=== PATIENT | female | born 1995 | race Two or more races ===

== ENCOUNTER 2025-04-13 11:21 | Emergency (ER) | payer BC, SELFPAY ==
[2025-04-13 11:32] VITALS: BP 159/95; PULSE 77; RESP 18; TEMP 37.1; O2SAT 96; BMI 37.2
--- NOTE | 2025-04-13 11:40 | XR_ITS ---
Examination: CT abdomen and pelvis without contrast. Coronal 3-D reconstructions. Sagittal 2-D reconstructions. Date and time of exam:April 13, 2025 1330 hours INDICATIONS: Onset left-sided flank pain and nausea beginning today CTDI: vol (mGy): 14.3 DLP: (mGycm): 896 Technique: Axial images of the abdomen have been obtained, 3 mm slice thickness Intravenous contrast material has not been administered. Low dose protocols were performed. One or more of the following dose reduction techniques were used; automated exposure control, adjustment of the mA and/or KV according to patient size, use of iterative reconstruction technique. Findings: Diffuse fatty infiltration throughout the liver no focal liver lesions No gallstones Spleen not enlarged No pancreatic mass No renal or ureteral calculi, no hydronephrosis Aorta normal size Normal appendix No bowel obstruction Anteverted uterus No adnexal mass No bladder mass or bladder calculi The osseous structures are intact IMPRESSION: No renal or ureteral calculi, no hydronephrosis No bladder mass or bladder calculi Normal appendix
[2025-04-13 12:18] LABS: Collection Type, Urine Clean Catch
[2025-04-13 12:28] LABS: Basophils # (Auto) 0.1 Thou/mm3 (0.0-0.2); Basophils % (Auto) 1 % (0-2.5); Eosinophils # (Auto) 0.1 Thou/mm3 (0.0-0.5); Eosinophils % (Auto) 0 % (0-10); Hematocrit 47.9 % (36.0-46.0); Hemoglobin 16.8 g/dL (12.0-16.0); Immature Granulocytes % (Auto) 0 % (0-0); Immature Granulocytes Auto 0.05 Thou/mm3 (0.00-0.00); Lymphocytes # (Auto) 2.2 Thou/mm3 (1.0-4.8); Lymphocytes % (Auto) 19 % (10-50); Mean Corpuscular HGB Conc 35.1 g/dl (31.0-37.0); Mean Corpuscular Hemoglobin 31.2 pg (25.0-35.0); Mean Corpuscular Volume 89 fL (80-100); Monocytes # (Auto) 0.6 Thou/mm3 (0.0-0.8); Monocytes % (Auto) 5 % (0-12); Neutrophils # (Auto) 8.8 Thou/mm3 (1.8-7.7); Neutrophils % (Auto) 75 % (37-80); Nucleated Red Blood Cell % 0 /100 WBC (0); Platelet Count 518 Thou/mm3 (140-440); RDW Standard Deviation 40.6 fL (36.4-46.3); Red Blood Count 5.38 Miln/mm3 (4.00-5.20); White Blood Count 11.7 Thou/mm3 (3.6-11.0)
[2025-04-13 12:37] LABS: Alanine Aminotransferase 63 U/L (10-49); Albumin, Serum 5.1 gm/dL (3.5-5.0); Albumin/Globulin Ratio 1.8 (1.2-2.2); Alkaline Phosphatase 86 U/L (46-116); Anion Gap 11 (7-16); Aspartate Amino Transferase 91 U/L (0-34); BUN/Creatinine Ratio 10 Ratio (12-20); Bilirubin,Total 0.8 mg/dL (0.3-1.2); Blood Urea Nitrogen 9 mg/dL (9-23); Calcium 9.5 mg/dL (8.3-10.6); Calcium (Corrected) 9.5 mg/dL (8.5-10.1); Carbon Dioxide 28.4 mMol/L (20.0-31.0); Chloride 102 mMol/L (98-107); Creatinine (Component) 0.9 mg/dL (0.6-1.3); Estimated Creatinine Clearance 107.9 mL/min (>60); Globulin 2.8 gm/dL (2.3-3.5); Glucose 122 mg/dL (74-106); Lipase 31 U/L (12-53); Osmolality,Calculated 280 (275-295); Potassium 3.9 mMol/L (3.4-5.1); Sodium 141 mMol/L (136-145); Total Protein 7.9 gm/dL (5.7-8.2); eGFR > 60 See Note
[2025-04-13 12:50] LABS: Bacteria,Urine Rare; Bilirubin,Urine Negative (Negative); Blood,Urine 1+ (Negative); Clarity,Urine Turbid (Clear/Hazy); Color,Urine Lt-Yellow (Lt Yel-Yel); Glucose, Urine Negative (Negative); Ketones,Urine 2+ (Negative); Leukocyte Esterase,Urine Positive (Negative); Nitrite,Urine Negative (Negative); Protein,Urine Negative (Neg - Trace); RBC,Urine 6 /hpf (0-3); Specific Gravity,Urine 1.018 (1.001-1.035); Squamous Epithelial Cell,Urine 7 /hpf (0-5); Urobilinogen,Urine Negative mg/dL (0.0-1.0); WBC,Urine 7 /hpf (0-5)
[2025-04-13 12:53] LABS: HCG Qualitative,Urine Negative
--- NOTE | 2025-04-13 14:36 | EDNOTE_ITS ---
ED Abdominal Pain RME/HPI General Chief Complaint: Abdominal Pain Stated complaint: Abdominal pain since yesterday Time seen by provider: 04/13/25 11:25 Arrival date/time: 04/13/25 11:21 This is a case of 29-year-old female who came in in the emergency room due to left-sided abdominal pain for 2 days initiated with nausea vomiting denies any constipation diarrhea persistence of the symptoms this patient decided to start consult here in the emergency room Mode of arrival: ambulatory Limitations: no limitations Related Data Previous Rx's ?Medication ?Instructions ?Recorded Promethazine Hcl/Dextromethorphan 1 tsp PO Q4-6HRPRN P RN cough #120 10/27/17 SYRUP * (PHENERGAN DM SYRUP *) mL acetaminophen 500 mg tablet 1,000 mg (2 x 500 mg) PO Q 6HR PRN 10/27/17 (Tylenol Extra Strength) PAIN #30 tabs ibuprofen 600 mg tablet 600 mg PO Q6HR PRN PAIN #30 tabs 10/27/17 ondansetron 4 mg disintegrating 1 tab PO Q6HR PRN naus ea #20 tabs 10/27/17 tablet (Zofran ODT) dicyclomine 20 mg tablet 20 mg PO TID PRN abdominal p ain 04/13/25 #30 tabs famotidine 20 mg tablet 20 mg PO BID #60 tabs nitrofurantoin 100 mg PO BID 10 days #20 ca ps 04/13/25 monohydrate/macrocrystals 100 mg capsule (Macrobid) omeprazole 40 mg capsule,delayed 40 mg PO QDAY #30 cap s 04/13/25 release ondansetron 4 mg disintegrating 4 mg PO Q8H PRN nausea and 04/13/25 tablet vomiting #20 tabs Allergies Allergy/AdvReac Type Severity Reaction Status Date / Time NKA* Allergy Uncoded 04/13/25 11:26 Review of Systems Review of Systems Systems Reviewed: All systems reviewed, normal except as documented Constitutional Constitutional: Reports system reviewed and no additional complaints, except as documented ENT Ears, Nose, Mouth, and Throat: Denies dysphagia and Denies odynophagia Cardiovascular Cardiovascular: Reports system reviewed and no additional complaints, except as documented Gastrointestinal Gastrointestinal: Reports system reviewed and no additional complaints, except as documented, Reports as per HPI, Reports abdominal pain, Denies belching, Denies bloating, Denies change in bowel habits, Denies change in stool character, Denies coffee ground emesis, Denies constipation, Denies cramping, Denies diarrhea, Denies dyspepsia, Denies dysphagia, Denies early satiety, Denies excessive flatus, Denies fecal incontinence, Denies heartburn, Denies hematemesis, Denies hematochezia, Denies loose stools, Denies melena, Reports nausea, Denies odynophagia, Denies tenesmus and Reports vomiting Musculoskeletal Musculoskeletal: Reports system reviewed and no additional complaints, except as documented Neurologic Neurologic: Reports system reviewed and no additional complaints, except as documented Past Medical History Social History SMOKING STATUS: Never smoker ED Exam General Limitations: Present no limitations General appearance: Present alert and in no apparent distress Head Head exam: Present atraumatic Eye Eye exam: Present normal appearance, PERRL and EOMI ENT ENT exam: Present normal exam, normal oropharynx and mucous membranes moist Neck Neck exam: Present normal inspection, full ROM and trachea midline; Absent tenderness, meningismus or lymphadenopathy Chest Chest inspection: Present normal inspection and symmetric chest wall rise; Absent tenderness or rash Respiratory Respiratory exam: Present normal lung sounds bilaterally; Absent respiratory distress, wheezes, stridor, accessory muscle use or prolonged expiratory phase Cardiovascular Cardiovascular exam: Present regular rate, normal rhythm and normal heart sounds; Absent bradycardia, tachycardia, irregular rhythm, systolic murmur or diastolic murmur Abdominal Exam Abdominal exam: Present soft, tenderness (Mild tenderness on left upper and left lower quadrant pain) and normal bowel sounds; Absent distention, guarding, rebound, rigidity, diminished bowel sounds, hyperactive bowel sounds, hypoactive bowel sounds, organomegaly, psoas sign, obturator sign, heel tap sign, Friedman's sign, Rovsing's sign, tenderness at McBurney's Point, ascites, mass or pulsatile mass Abdominal tenderness: Present LUQ and mild Extremities Exam Extremities exam: Present normal inspection and full ROM Back Exam Back exam: Present normal inspection and full ROM Neurological Exam Neurological exam: Present alert, oriented X3, CN II-XII intact, normal gait and reflexes normal; Absent motor sensory deficit Psychiatric Psychiatric exam: Present normal affect and normal mood Skin Skin exam: Present warm, dry, intact and normal color Course Quality Measures none Orders Category Date Time Status CT abdomen pelvis wo con Stat Exams 04/13/25 11:40 Completed CBC Stat Lab 04/13/25 11:50 Completed Comprehensive Metabolic Panel Stat Lab 04/13/25 11:50 Completed HCG Qualitative,Urine Stat Lab 04/13/25 12:08 Completed Lipase Stat Lab 04/13/25 11:50 Completed Urinalysis Stat Lab 04/13/25 12:08 Completed Ketorolac Inj [Toradol Inj] Med 04/13/25 14:36 Discontinued 30 mg IM X1 ONE Ondansetron Odt [Zofran Odt] Med 04/13/25 14:36 Discontinued 4 mg PO X1 ONE Vital Signs Vital signs: Vital Signs Temperature 98.8 F 04/13/25 11:32 Pulse Rate 77 04/13/25 11:32 Respiratory Rate 18 04/13/25 11:32 Blood Pressure 159/95 H 04/13/25 11:32 Pulse Oximetry (%) 96 04/13/25 11:32 Oxygen Delivery Method Room Air 04/13/25 11:32 Patient is afebrile not tachycardic not tachypneic BP stable not hypoxic oxygen saturation is 96% on room air Abdominal Pain MDM MDM Narrative MDM Narrative:: This is a case of 29-year-old female who came in in the emergency room due to left-sided abdominal pain with nausea vomiting denies any other symptoms for 2 days physical examination patient is awake alert oriented not in distress nontoxic looking afebrile not hypoxic abdominal exam is benign nonsurgical no g uarding no rebound no rigidity mild tenderness in the left upper and left lower quadrant negative psoas negative straight and negative Rovsing's negative McBurney's negative Friedman sign negative CVA tenderness blood test showed leukocytosis at 10.7 no anemia kidney function is normal no electrolyte imbalance patient liver function AST and ALT is mildly elevated patient urinalysis showed WBC and urine suggestive of urinary tract infection CT scan showed fatty liver otherwise normal at this point patient was given Toradol and Zofran which improved and resolved the pain abdominal exam is benign nonsurgical patient has no signs and symptoms of acute abdomen sepsis or dehydration patient was prescribed with omeprazole famotidine for gastritis Zofran for vomiting and Macrobid for urinary tract infection she was advised to follow-up with PCP in 2 days for reevaluation and to monitor his liver function and and repeat the level in 3 months to see a vault cashier for gastritis for possible EGD and fatty liver for any worsening symptoms or any emergent concerns she will return in the emergency room immediately or call 911 Patient was discharged with comfortable condition walking with stable gait. Patient verbalized no further complains explained diagnosis and answered patient question. Patient is comfortable with the proposed management plan including the need to follow up with his/her primary care physician and any specialist if applicable Discussed patient for any urgent condition or worsening sx, He/She needed to go to emergency room immediately or call 911. Patient acknowledge the responsibility to follow up as instructed and to monitor her/his symptoms. For any persistence of the symptoms for more than 3-5 days return precaution advised. Discussed the result of the test and was given printed discharge instruction Patient data External records reviewed:: [facility] previous records Clinical information provided by:: patient Social determinants that could affect healthcare access:: none Patient has the following chronic illnesses:: None How is presenting disease/condition affected by chronic disease/condition?: no chronic disease Evaluation data The following diagnostics were reviewed and interpreted by me:: lab results and radiology exam(s) Lab and/or radiology exams considered but not ordered:: Reviewed Interpretation Summary: Reviewed Medications / Prescriptions Medications or Prescriptions considered but not ordered:: Given Medication administrations:: Medication Administration History Discontinued Medications Ketorolac Tromethamine (Ketorolac Inj 60 Mg/2 Ml Vial) 30 mg IM X1 ONE Stop: 04/13/25 14:37 Ondansetron HCl (Ondansetron Odt 4 Mg Tabrap) 4 mg PO X1 ONE; Protocol Stop: 04/13/25 14:37 Given Consultations Consultation(s) initiated? (list below): No Diagnosis Differential diagnosis abdominal pain: abdominal pain, acute appendicitis, calculus of kidney, constipation, diverticulitis and gastroenteritis Most likely diagnosis given after review of the tests above:: Urinary tract infection Admission Indicated Admission indicated?: not indicated Explain why admission is indicated or not indicated:: Not indicated Admission Request Was there a request for admission?: No Admission Attestation Admission request attestation: Not indicated Disposition Plan Disposition Plan: Discharge Discharge Attestation Discharge Attestation: The patient and all family members were given an opportunity to ask questions and understood the discharge instructions. Discharge instructions specifically effects, indications for sooner follow up or return to the emergency department, and the expected course of current diagnosis. Patient condition: Stable Discharge Plan Plan Patient Disposition: HOME (Self Care) Patient condition on transfer: Stable Prescriptions/Referrals Prescriptions/Med Rec: New omeprazole 40 mg capsule,delayed release(DR/EC) 40 mg PO QDAY Qty: 30 0RF famotidine 20 mg tablet 20 mg PO BID Qty: 60 0RF ondansetron 4 mg tablet,disintegrating 4 mg PO Q8H PRN (Reason: nausea and vomiting) Qty: 20 0RF dicyclomine 20 mg tablet 20 mg PO TID PRN (Reason: abdominal pain) Qty: 30 0RF nitrofurantoin monohyd/m-cryst [Macrobid] 100 mg capsule 100 mg PO BID 10 Days Qty: 20 0RF Rx Instructions: must administer with a meal/food No Action acetaminophen [Tylenol Extra Strength] 500 MG tablet 1,000 mg PO Q6HR PRN (Reason: PAIN) Qty: 30 0RF ibuprofen 600 MG tablet 600 mg PO Q6HR PRN (Reason: PAIN) Qty: 30 0RF ondansetron [Zofran ODT] 4 MG/UDTABLET tablet,disintegrating 1 tab PO Q6HR PRN (Reason: nausea) Qty: 20 0RF Promethazine Hcl/Dextromethorphan SYRUP * (PHENERGAN DM SYRUP *) 473 ML syrup 1 tsp PO Q4-6HRPRN PRN (Reason: cough) Qty: 120 0RF Referrals: Isaac Villalobos MD [Primary Care Provider] - In 1 week Problem List Clinical Impression: Abdominal pain, Gastritis, Urinary tract infection, Fatty liver, Elevated liver enzymes Patient/Caregiver Discharge Instructions Education Materials: Abdominal Pain, Nonalcoholic Fatty Liver ..., Understanding Gastritis, ED Gastritis (Adult) Additional Instructions: Follow-up with your primary care physician in 2 days for reevaluation and to be referred to vault cashier for further evaluation and treatment of gastritis for possible EGD and tube monitor your liver enzymes and to repeat the level after 3 months no alcohol no Motrin no soda is advised and to monitor your fatty liver for any recurrence persistent worsening symptoms or any emergent concern need to be returned to the emergency room immediately or call 911 increase water intake keep hydrated Pedialyte Gatorade for hydration take and finish the course of antibiotic avoid skipping of meals avoid alcohol soda coffee avoid spicy food avoid fat fried high cholesterol foods Print Language: Kenyan Stand Alone Forms: Tri Award Info., Patient Portal Info Letter PA/SIGN LETTERER Supervising Physician PA/SIGN LETTERER Supervising Physician: dr juarez
[2025-04-13] MEDS: KETOROLAC INJ 60 MG/2 ML VIAL 30 MG IM (14:50)
[2025-04-13] MEDS: ONDANSETRON ODT 4 MG TABRAP PO (14:51)
== END 2025-04-13 15:21 | disposition home or self-care (01) ==
PROVIDERS: Nurse Practitioner Family; Emergency Provider Emergency Medicine; PCP Family Medicine
DX: K29.70 Gastritis, unspecified, without bleeding (principal); N39.0 Urinary tract infection, site not specified; K76.0 Fatty (change of) liver, not elsewhere classified
CPT/HCPCS: 36415; 74176; 80053; 81001; 81025; 83690; 85025; 96372; 99284; J1885; Q0162